=== PATIENT | male | born 1960 | race Hispanic/Latino ===

== ENCOUNTER 2022-10-15 01:39 | Emergency (ER) | payer OTHER ==
--- OUTSIDE RECORDS SUMMARY | 2022-10-15 01:43 | XMS REPORT | Continuity of Care Document ---
:1960 Author Organization [facility] t Address [address] [place] [address] [address] [place] [address] Care Team Providers Name Role Phone VITO SCOTT Primary Care Physician Unavailable RADIOLOGY Attending Clinician Unavailable Nelson Suarez DO Attending Clinician Josep Márquez PTA Attending Clinician Unavailable Khris Boucher MD Attending Clinician Chalino PTCarrie Attending Clinician Unavailable Samantha Martinez PT Attending Clinician Unavailable CHRISTA SANON Attending Clinician Unavailable Christa De Leon Attending Clinician KHRIS BOUCHER Attending Clinician Unavailable Doctor Unassigned, [place] Attending Clinician Unavailable Payers Payer Name Policy Type Policy Number Effective Date Expiration Date [facility] [id number] 2022 PPO/POS 00:00:00 Problems This patient has no known problems. Allergies, Adverse Reactions, Alerts Allergy Allergy Status Severity Reaction(s) Onset Inactive Treating Comm ents Source Name Type Date Date Clinician NO KNOWN Drug Active Univers ALLERGIE Class ity [facility] Social History Social Habit Start Date Stop Date Quantity Comments Source Tobacco use and 2019-06-15 2019-06-15 Never used [facility] exposure 00:00:00 00:00:00 [facility] Sex Assigned At [birth year] [facility] 00:00:00 00:00:00 [facility] Branch Smoking Status Start Date Stop Date Source Unknown if ever smoked [facility] Current every day smoker 2019-06-15 00:00:00 [facility] Medications Ordered Filled Start Stop Current Ordering Indication Dosage Frequency Signature Comments Components Source Medication Medication Date Date Medication? Clinician (SIG) Name Name irbesartan 2020-0 Yes TK 1 T PO Un laura 300 mg 1-08 QAM ity of tablet 00:00: [place] [facility] amLODIPine 2020-0 Yes TK 1 T PO Un laura 10 mg 1-08 QAM ity of tablet 00:00: [place] [facility] irbesartan 2020-0 Yes TK 1 T PO Un laura 300 mg 1-08 QAM ity of tablet 00:00: [place] [address] [facility] amLODIPine 2020-0 Yes TK 1 T PO Un laura 10 mg 1-08 QAM ity of tablet 00:00: [place] [address] [facility] irbesartan 2020-0 Yes TK 1 T PO Un laura 300 mg 1-08 QAM ity of tablet 00:00: [place] [address] [facility] amLODIPine 2020-0 Yes TK 1 T PO Un laura 10 mg 1-08 QAM ity of tablet 00:00: [place] [address] [facility] irbesartan 2020-0 Yes TK 1 T PO Un laura 300 mg 1-08 QAM ity of tablet 00:00: [place] [address] [facility] Branch amLODIPine 2020-0 Yes TK 1 T PO Un laura 10 mg 1-08 QAM ity of tablet 00:00: [place] [address] [facility] irbesartan 2020-0 Yes TK 1 T PO Un laura 300 mg 1-08 QAM ity of tablet 00:00: [place] [address] [facility] amLODIPine 2020-0 Yes TK 1 T PO Un laura 10 mg 1-08 QAM ity of tablet 00:00: [place] [address] [facility] Branch irbesartan 2020-0 Yes TK 1 T PO Un laura 300 mg 1-08 QAM ity of tablet 00:00: [place] [address] [facility] amLODIPine 2020-0 Yes TK 1 T PO Un laura 10 mg 1-08 QAM ity of tablet 00:00: [place] [address] [facility] irbesartan 2020-0 Yes TK 1 T PO Un laura 300 mg 1-08 QAM ity of tablet 00:00: [place] [address] [facility] amLODIPine 2020-0 Yes TK 1 T PO Un laura 10 mg 1-08 QAM ity of tablet 00:00: [place] [address] [facility] Branch irbesartan 2020-0 Yes TK 1 T PO Un laura 300 mg 1-08 QAM ity of tablet 00:00: [place] 00 [facility] amLODIPine 2020-0 Yes TK 1 T PO Un laura 10 mg 1-08 QAM ity of tablet 00:00: [place] 00 [facility] irbesartan 2020-0 Yes TK 1 T PO Un laura 300 mg 1-08 QAM ity of tablet 00:00: [place] [address] [facility] amLODIPine 2020-0 Yes TK 1 T PO Un laura 10 mg 1-08 QAM ity of tablet 00:00: [place] 00 [facility] irbesartan 2020-0 Yes TK 1 T PO Un laura 300 mg 1-08 QAM ity of tablet 00:00: [place] [address] [facility] amLODIPine 2020-0 Yes TK 1 T PO Un laura 10 mg 1-08 QAM ity of tablet 00:00: [place] [address] [facility] irbesartan 2020-0 Yes TK 1 T PO Un laura 300 mg 1-08 QAM ity of tablet 00:00: [place] [address] [facility] amLODIPine 2020-0 Yes TK 1 T PO Un laura 10 mg 1-08 QAM ity of tablet 00:00: [place] [address] [facility] irbesartan 2020-0 Yes TK 1 T PO Un laura 300 mg 1-08 QAM ity of tablet 00:00: [place] [address] [facility] amLODIPine 2020-0 Yes TK 1 T PO Un laura 10 mg 1-08 QAM ity of tablet 00:00: [place] [address] [facility] Branch irbesartan 2020-0 Yes TK 1 T PO Un laura 300 mg 1-08 QAM ity of tablet 00:00: [place] [address] [facility] amLODIPine 2020-0 Yes TK 1 T PO Un laura 10 mg 1-08 QAM ity of tablet 00:00: [place] [address] [facility] irbesartan 2020-0 Yes TK 1 T PO Un laura 300 mg 1-08 QAM ity of tablet 00:00: [place] [address] [facility] Branch amLODIPine 2020-0 Yes TK 1 T PO Un laura 10 mg 1-08 QAM ity of tablet 00:00: [place] [address] [facility] Branch irbesartan 2020-0 Yes TK 1 T PO Un laura 300 mg 1-08 QAM ity of tablet 00:00: [place] [address] [facility] Branch amLODIPine 2020-0 Yes TK 1 T PO Un laura 10 mg 1-08 QAM ity of tablet 00:00: [place] 00 [facility] irbesartan 2020-0 Yes TK 1 T PO Un laura 300 mg 1-08 QAM ity of tablet 00:00: [place] [address] [facility] Branch amLODIPine 2020-0 Yes TK 1 T PO Un laura 10 mg 1-08 QAM ity of tablet 00:00: [place] 00 [facility] irbesartan 2020-0 Yes TK 1 T PO Un laura 300 mg 1-08 QAM ity of tablet 00:00: [place] [address] [facility] Branch amLODIPine 2020-0 Yes TK 1 T PO Un laura 10 mg 1-08 QAM ity of tablet 00:00: [place] [address] [facility] irbesartan 2020-0 Yes TK 1 T PO Un laura 300 mg 1-08 QAM ity of tablet 00:00: [place] [address] [facility] amLODIPine 2020-0 Yes TK 1 T PO Un laura 10 mg 1-08 QAM ity of tablet 00:00: [place] [address] [facility] irbesartan 2020-0 Yes TK 1 T PO Un laura 300 mg 1-08 QAM ity of tablet 00:00: [place] [address] [facility] amLODIPine 2020-0 Yes TK 1 T PO Un laura 10 mg 1-08 QAM ity of tablet 00:00: [place] [address] [facility] amLODIPine 2020-0 Yes TK 1 T PO Un laura 10 mg 1-08 QAM ity of tablet 00:00: [place] [address] [facility] irbesartan 2020-0 Yes TK 1 T PO Un laura 300 mg 1-08 QAM ity of tablet 00:00: [place] [address] [facility] amLODIPine 2020-0 Yes TK 1 T PO Un laura 10 mg 1-08 QAM ity of tablet 00:00: [place] [address] [facility] irbesartan 2020-0 Yes TK 1 T PO Un laura 300 mg 1-08 QAM ity of tablet 00:00: [place] [address] [facility] Vital Signs Vital Name Observation Time Observation Value Comments Source BMI 2019-08-19 18:24:00 29.99 kg/m2 [facility] Systolic blood 2019-08-19 18:24:00 139 mm[Hg] Univer sity of pressure [facility] Diastolic blood 2019-08-19 18:24:00 80 mm[Hg] Unive rsity of pressure [facility] Body height 2019-08-19 18:24:00 180.3 cm [facility] Body weight 2019-08-19 18:24:00 97.523 kg [facility] [place] [facility] Systolic blood 2019-07-22 18:28:00 141 mm[Hg] Univer sity of pressure [place] [facility] Diastolic blood 2019-07-22 18:28:00 86 mm[Hg] Unive rsity of pressure [facility] Heart rate 2019-07-22 18:28:00 89 /min Universi ty of [facility] Body height 2019-07-22 18:28:00 180.3 cm [facility] [place] [facility] [place] Body weight 2019-07-22 18:28:00 97.523 kg Universi [facility] of [facility] BMI 2019-07-22 18:28:00 29.99 kg/m2 [facility] Systolic blood 2019-06-22 21:38:00 163 mm[Hg] Univer sity of pressure [facility] Diastolic blood 2019-06-22 21:38:00 96 mm[Hg] Unive rsity of pressure [facility] Systolic blood 2019-06-15 20:54:00 165 mm[Hg] Univer sity of pressure [place] [facility] Diastolic blood 2019-06-15 20:54:00 99 mm[Hg] Unive rsity of pressure [facility] Heart rate 2019-06-15 20:54:00 90 /min Universi ty of [facility] Respiratory rate 2019-06-15 20:54:00 20 /min Univ ersity of [facility] Body height 2019-06-15 20:54:00 180.3 cm Universi ty of [facility] Body weight 2019-06-15 20:54:00 97.523 kg Universi ty of [facility] BMI 2019-06-15 20:54:00 29.99 kg/m2 Universi ty [facility] Procedures Procedure Date / Time Performed Performing Clinician Sourvaldemar e XR ELBOW <3 VW LEFT 2019-08-19 18:25:[address] [facility] XR ELBOW <3 VW LEFT 2019-07-22 18:25:57 Khris Boucher Univer sity [facility] XR ELBOW >3 VW LEFT 2019-06-22 22:12:[address] [facility] ASSIGNMENT OF BENEFITS 2019-06-15 20:47:02 Doctor Unassigned, No [facility] Encounters Start End Encounter Admission Attending Care Care Encounter Source Date/Time Date/Time Type Type Clinicians Facility Department ID 2022-08-24 2022-08-24 Outpatient R RADIOLOGY [facility] [id number] Univers 00:00:00 00:00:00 ity [facility] 2020-07-26 2020-07-26 Patient Erick [facility] 1.2.840.114 [id number] Univers 00:00:00 00:00:00 Outreach Nelson PRIMARY [id number] i ty of [facility] [id number] [id number] Ca dic[address] 2019-09-11 2019-09-11 Outpatient R [facility] [id number] Univers 11:20:00 11:20:00 ity [facility] 2019-09-08 2019-09-08 Ancillary Willi Josep Stephen [facility] 1.2.840. 114 [id number] Univers 08:34:41 09:14:41 Visit Khris Boucher [id number] it[id number] [phone] Ca dical nal 179 [facility] 2019-09-01 2019-09-01 Ancillary Carrie Allred [facility] 1.2.840. 114 [id number] Univers 09:05:31 09:45:31 Visit Khris Boucher [id number] [id number] [phone] Ca dical nal 179 [facility] 2019-08-28 2019-08-28 Ancillary Samantha Martinez [facility] 1 .2.840.114 [id number] Univers 09:59:48 10:39:48 Visit Khris Boucher [id number] [id number] [id number] Ca dical nal 179 [facility] 2019-08-19 2019-08-19 Outpatient R YANCY [facility] [id number] Univers 13:25:23 23:59:00 CHRISTA ity [facility] 2019-08-19 2019-08-19 [facility] 1.2.840.114 [id number] Univers 13:25:00 23:59:00 Encounter Christa S [facility] [id number] ity of Surgical [id number] [place] as Specialti [phone] Me dical es 809 [facility] 2019-08-19 2019-08-19 Office Yancy [facility] 1.2.840.114 [id number] Univers 13:10:42 14:00:24 Visit Christa S Health [id number] it y of Surgical [id number] [place] as Specialti [phone] Ca dical es 198 [facility] 2019-08-19 2019-08-19 Ancillary Andi Alejo Samantha [facility] 1 .2.840.114 [id number] Univers 09:15:39 09:55:39 Visit Khris Boucher [id number] [id number] [phone] Ca dical nal 179 [facility] 2019-08-19 2019-08-19 Letter Yancy [facility] 1.2.840.114 [id number] Univers 00:00:00 00:00:00 (Out) Christa [facility] [id number] it y of Surgical [id number] [place] as Specialti [phone] Ca dical es 198 [facility] 2019-08-17 2019-08-17 Ancillary Carrie Allred [facility] 1.2.840. 114 [id number] Univers 14:51:46 15:01:46 Visit Khris Boucher [id number] [id number] [phone] Ca dical nal 179 [facility] 2019-08-12 2019-08-12 Ancillary Andi Alejo Samantha [facility] 1 .2.840.114 [id number] Univers 09:47:01 11:37:40 Visit Khris Boucher [id number] [id number] [phone] Me dical nal 179 [facility] 2019-08-12 2019-08-12 [facility] [id number] Univers 10:00:00 10:00:00 KHRIS ity [facility] 2019-07-24 2019-07-24 Ancillary Samantha Martinez [facility] 1 .2.840.114 [id number] Univers 08:52:59 11:11:10 Visit Khris Boucher [place] [id number] it[id number] [phone] Ca dical nal 179 [facility] 2019-07-24 2019-07-24 [facility] [id number] Univers 09:00:00 09:00:00 KHRIS [facility] 2019-07-22 2019-07-22 [facility]patient [facility] [id number] Univers 13:25:56 23:59:00 [facility] 2019-07-22 2019-07-22 [facility] 1.2.840.114 [id number] Univers 13:25:00 23:59:00 Encounter Khris [facility] [id number] ity of Surgical [id number] [place] as Specialti [phone] Ca dical es 809 [facility] 2019-07-22 2019-07-22 Office [facility] 1.2.840.114 [id number] Univers 13:18:39 13:33:39 Visit Christa S Health [id number] it y of Surgical [id number] [place] as Specialti [phone] Me dical es 198 [facility] 2019-06-22 2019-06-22 Outpatient [facility] [id number] Univers 16:12:36 23:59:00 [facility]-06-22 2019-06-22 [facility] 1.2.840.114 [id number] Univers 16:12:00 23:59:00 Encounter Christa S Health [id number] ity of Surgical [id number] [place] as Specialti [phone] Ca dical es 809 [facility] 2019-06-22 2019-06-22 Office Christa Sanon [facility] 1.2.840.114 [id number] Univers 15:11:56 15:26:56 Visit Khris Boucher [facility] [id number] ity of Surgical [id number] [place] as Specialti [phone] Ca dical es 198 [facility] 2019-06-22 2019-06-22 [facility] 1.2.840.114 [id number] Univers 00:00:00 00:00:00 (Out) Chirsta Bass [facility] [id number] it y of Surgical [id number] [place] as Specialti [phone] Ca dical es 198 [facility] 2019-06-15 2019-06-15 Office Dorian [facility] 1.2.514.109 [id number] Univers 14:48:31 15:05:25 Visit Khris Donnelly [facility] [id number] it y of Surgical [id number] [place] as Specialti [phone] Ca dical es 198 [facility] 2019-06-15 2019-06-15 Orders Doctor EYAL 1.2.840.114 [id number] Univers 00:00:00 00:00:00 Only Unassigned, SUSY [id number] ity of [facility] [facility] 4.2.7.2.686 Nicholas as [phone] Medi cesia 009 Branch Results Test Description Test Time Test Comments Results Result [facility] e Comments XR ELBOW <3 VW 2019-08-19 We'll head in Univers ity of LEFT 18:59:09 acceptable [place] [facility] alignment and Branch good callus formation now. ? XR ELBOW <3 VW 2019-07-22 The radial head Unive rsity of LEFT 19:07:10 fracture shows [place] [facility] good healing and Branch is in normal alignment XR ELBOW >3 VW 2019-06-22 Radial head Universit y of LEFT 22:28:10 fracture slightly [place] [facility] displacement in Branch acceptable position for conservative management
--- NOTE | 2022-10-15 02:44 | EDPHYS ---
Physician Documentation [facility] Name: Lakhwinder Newman Age: 62 yrs Sex: Male : 1960 Arrival Date: 10/15/2022 Time: 01:39 Bed 5 Private MD: ED Physician Kaveh Mercado HPI: 10/15 02:31 This 62 yrs old Male presents to ER via Ambulatory with complaints of Cough, bs3 Headache, Chest Pain, Congestion. 02:31 62-year-old male history of hypertension, smoker presents with cough nasal congestion bs3 headache for approximately 1 week he was seen at an urgent care they did a viral panel which was negative with chest x-ray which was negative started him on amoxicillin steroids and an inhaler he has been taking them but feels like he has phlegm stuck in the top of his chest and is causing him difficulty breathing he denies leg swelling or anything else bothering him denies night sweats or weight loss he denies paroxysmal nocturnal dyspnea he tried a codeine syrup for his cough but it dried him out and therefore he stopped. Historical: - Allergies: 01:53 No Known Allergies; kl - PMHx: 01:53 Hypertensive disorder; kl - PSHx: 01:53 Appendectomy; kl - Immunization history:: Adult Immunizations not immunized. - Social history:: Smoking status: Patient reports the use of cigarette tobacco products, smokes one pack cigarettes per day. hasnt smoked in 1 week. ROS: 02:31 Constitutional: Negative for fever, chills bs3 02:31 All other systems are negative. Exam: 02:31 Constitutional: This is a well developed, well nourished patient who is awake, alert, bs3 and in no acute distress. Head/Face: Normocephalic, atraumatic. Eyes: Pupils equal round and reactive to light, extra-ocular motions intact. Lids and lashes normal. ENT: mmm, no posterior phyarngeal erythema Neck: Trachea midline, no thyromegaly, no neck stiffness Chest/axilla: Normal chest wall appearance and motion. Nontender with no deformity. No lesions are appreciated. Cardiovascular: Regular rate and rhythm with a normal S1 and S2. symmetric pulses in upper extremities Respiratory: Lungs have equal breath sounds bilaterally, clear to auscultation, no respiratory distress Abdomen/GI: Soft, non-tender, no rebound or guarding Skin: Warm, dry with normal turgor. Normal color with no rashes, no lesions, and no evidence of cellulitis. MS/ Extremity: Pulses equal, no cyanosis. Neurovascular intact. Full, normal range of motion. Neuro: Awake and alert, GCS 15, oriented to person, place, time, and situation. Cranial nerves II-XII grossly intact. Motor strength 5/5 in all extremities. Sensory grossly intact. Psych: Awake, alert, with orientation to person, place and time. Behavior, mood, and affect are within normal limits. Vital Signs: 01:50 BP 174 / 97; Pulse 79; Resp 18; Temp 97.9(O); Pulse Ox 95% on R/A; Weight 92 kg (M); kl Height 5 ft. 10 in. ; 02:56 BP 164 / 84; Pulse 76; Resp 16; Pulse Ox 94% on R/A; jb4 01:50 Body Mass Index 29.10 (92.00 kg, 177.8 cm) MDM: 01:45 Patient medically screened. bs3 02:31 Differential Diagnosis: Upper Respiratory Infection Viral Syndrome Pneumonia. Data bs3 reviewed: vital signs, nurses notes. ED course: Patient already on antibiotics will get x-ray to evaluate for pneumonia as he has antibiotics would not be appropriate for a lobar pneumonia he is not hypoxic or tachypneic here I do not think he has a pulmonary embolism given the constitution of symptoms I advised him to follow-up with his primary care doctor. 02:43 ED course: X-ray negative for acute pathology as interpreted myself advised return bs3 precautions discharged home. 10/15 02:00 Order name: XRAY Chest Pa And Lat (2 Views) bs3 Administered Medications: 02:06 Drug: Tessalon Perle PO 100 mg Route: PO; jb4 02:41 Drug: Ketorolac IVP 15 mg Route: IVP; Site: right antecubital; jb4 Disposition Summary: 10/15/22 02:43 Discharge Ordered Location: Home bs3 Problem: new bs3 Symptoms: have improved bs3 Condition: Stable bs3 Diagnosis - Acute upper respiratory infection, unspecified bs3 Followup: bs3 - With: Private Physician - When: 1 week - Reason: Re-evaluation by your physician Discharge Instructions: - Discharge Summary Sheet bs3 - Upper Respiratory Infection, Adult, [id number] bs3 Forms: - Medication Reconciliation Form bs3 - Thank You Letter bs3 - Antibiotic Education bs3 - Prescription Opioid Use bs3 Prescriptions: - Tessalon Perles 100 mg Oral Capsule - take 1 capsule by ORAL route every 8 hours As needed; 15 capsule; Refills: 0, bs3 Product Selection Permitted Signatures: Dispatcher [employer] Alisson Rowe RN RN kl Bryson, James, RN RN jb4 Kaveh Mercado MD MD bs3
--- NOTE | 2022-10-15 02:44 | ER ---
Nurse's Notes [facility] Name: Lakhwinder Newman Age: 62 yrs Sex: Male : 1960 Arrival Date: 10/15/2022 Time: 01:39 Bed 5 Private MD: Diagnosis: Acute upper respiratory infection, unspecified Presentation: 10/15 01:50 Chief complaint: Patient states: cough x 1 week diagnosed with bronchitis on 10/08 no kl improvement with outpatient medication albuterol inhaler Augmentin 875 and prednisone 20 mg. Coronavirus screen: Vaccine status: Patient reports being unvaccinated. Ebola Screen: Patient negative for fever greater than or equal to 101.5 degrees Fahrenheit, and additional compatible Ebola Virus Disease symptoms. Initial Sepsis Screen: Does the patient meet any 2 criteria? No. Patient's initial sepsis screen is negative. Does the patient have a suspected source of infection? No. Patient's initial sepsis screen is negative. Risk Assessment: Do you want to hurt yourself or someone else? Patient reports no desire to harm self or others. 01:50 Method Of Arrival: Ambulatory kl 01:50 Acuity: ALYSON 3 kl Triage Assessment: 01:54 General: Appears comfortable, Behavior is cooperative. Neuro: No deficits noted. kl Cardiovascular: No deficits noted. Respiratory: Reports shortness of breath on exertion pain with cough pain with respiration Airway is patent Trachea midline Respiratory effort is even, Respiratory pattern is regular. GI: No deficits noted. No signs and/or symptoms were reported involving the gastrointestinal system. : No deficits noted. No signs and/or symptoms were reported regarding the genitourinary system. Derm: No deficits noted. No signs and/or symptoms reported regarding the dermatologic system. Historical: - Allergies: 01:53 No Known Allergies; kl - PMHx: 01:53 Hypertensive disorder; kl - PSHx: 01:53 Appendectomy; kl - Immunization history:: Adult Immunizations not immunized. - Social history:: Smoking status: Patient reports the use of cigarette tobacco products, smokes one pack cigarettes per day. hasnt smoked in 1 week. Screenin:56 [facility] ED Fall Risk Assessment (Adult) History of falling in the last 3 months, jb4 including since admission No falls in past 3 months (0 pts) Confusion or Disorientation No (0 pts) Score/Fall Risk Level 0 - 2 = Low Risk Oriented to surroundings, Maintained a safe environment. Abuse screen: Denies threats or abuse. Nutritional screening: No deficits noted. Tuberculosis screening: No symptoms or risk factors identified. Assessment: 02:56 Reassessment: Patient appears in no apparent distress at this time. Patient and/or jb4 family updated on plan of care and expected duration. Pain level reassessed. Patient is alert, oriented x 3, equal unlabored respirations, skin warm/dry/pink. Vital Signs: 01:50 BP 174 / 97; Pulse 79; Resp 18; Temp 97.9(O); Pulse Ox 95% on R/A; Weight 92 kg (M); kl Height 5 ft. 10 in. ; 02:56 BP 164 / 84; Pulse 76; Resp 16; Pulse Ox 94% on R/A; jb4 01:50 Body Mass Index 29.10 (92.00 kg, 177.8 cm) ED Course: 01:44 Patient arrived in ED. ja2 01:45 Kaveh Mercado MD is Attending Physician. bs3 01:53 Triage completed. kl 02:00 Inserted saline lock: 18 gauge in right antecubital area, using aseptic technique. jb4 Blood collected. 02:21 XRAY Chest Pa And Lat (2 Views) In Process Unspecified. EDMS 02:56 Patient has correct armband on for positive identification. Bed in low position. Call jb4 light in reach. Side rails up X 1. Client placed on continuous cardiac and pulse oximetry monitoring. NIBP monitoring applied. library monitor on. 02:56 No provider procedures requiring assistance completed. IV discontinued, intact, jb4 bleeding controlled, No redness/swelling at site. Pressure dressing applied. Administered Medications: 02:06 Drug: Tessalon Perle PO 100 mg Route: PO; jb4 02:41 Drug: Ketorolac IVP 15 mg Route: IVP; Site: right antecubital; jb4 Outcome: 02:43 Discharge ordered by . bs3 02:58 Discharged to home ambulatory. jb4 02:58 Condition: stable 02:58 Discharge instructions given to patient, Instructed on discharge instructions, follow up and referral plans. medication usage, Demonstrated understanding of instructions, follow-up care, medications, Prescriptions given X 1. 02:58 Patient left the ED. jb4 Signatures: Dispatcher [employer] LADY Tate, Alisson, RN RN kl Bob Ewing RN RN jb4 Maria R Agrawal Brandon, MD MD bs3
[2022-10-15] MEDS ORDERED: KETOROLAC 30 MG/ML INJ ONE (02:46)
[2022-10-15 03:03] VITALS: TEMP 97.9
[2022-10-15 03:05] VITALS: BP 164/84; O2SAT 94
--- NOTE | 2022-10-15 14:07 | RAD REPORT ---
EXAM DESCRIPTION: Chest Pa And Lat (2 Views) CLINICAL HISTORY: COUGH TECHNIQUE: AP chest COMPARISON: PA and lateral chest FINDINGS: CHEST: Heart: The cardiomediastinal silhouette is within normal limits. Lungs: No focal consolidation. Mediastinum: Unremarkable Pleura: No appreciable effusion. No pneumothorax. Bones: Intact IMPRESSION: No acute cardiopulmonary disease. Electronically signed by: Cj Lima MD 10/15/2022 2:37 AM CDT Due to temporary technical issues with the PACS/Fluency reporting system, reports are being signed by the in house radiologist without review as a courtesy to ensure prompt reporting. The interpreting r adiologist is fully responsible for the content of the report.
== END 2022-10-15 02:58 | disposition home or self-care (01) ==
LOC: ER 01:39
DX: J06.9 Acute upper respiratory infection, unspecified (principal); I10 Essential (primary) hypertension; F17.210 Nicotine dependence, cigarettes, uncomplicated
CPT/HCPCS: 71046; 96374; 99285